=== PATIENT | female | born 2000 | race Caucasian/White ===

== ENCOUNTER 2018-10-24 18:27 | Emergency (ER) | payer SELFPAY ==
--- NOTE | 2018-10-24 18:42 | Emergency Department Report ---
Chief Complaint: Urogenital-Female Stated Complaint: TEST Time Seen by Provider: 10/24/18 18:37 - HPI History of Present Illness: POS PREG TEST TODAY WANTS NO LIFE THREAT NO VAG BLEED NO ABD PAIN MSE COMPLETED MSE screening note: Focused history and physical exam performed. Due to findings the following was ordered: ED Disposition for MSE Condition: Stable
== END 2018-10-24 18:42 | disposition home or self-care (01) ==
LOC: ED 18:27